=== PATIENT | female | born 1975 | race Asian ===

== ENCOUNTER 2024-03-04 07:18 | Day surgery (SDC) | payer OTHER, SELFPAY ==
[2024-02-28 09:23] VITALS: BMI 26.2
[2024-03-04] VITALS (10 sets, daily range): BP systolic 104–121; BP diastolic 62–74; PULSE 76–90; RESP 12–18; TEMP 36.2–36.8; O2SAT 97–100; BMI 26.5
--- NOTE | 2024-03-04 | PATH_ITS ---
[facility] Accession Number: [id number] No. of containers..01 Tissue . 01 Material submitted: . uterus - UTERUS . 01 Diagnosis: UTERUS, SUPRACERVICAL HYSTERECTOMY, BILATERAL SALPINGECTOMY, AND RIGHT OOPHORECTOMY (WEIGHT 141 GRAMS): Secretory endometrium; negative for endometrioid intraepithelial neoplasia or malignancy. Myometrium involved by adenomyosis and with a leiomyoma (32 mm in greatest dimension). Uterine serosa with no significant histomorphologic abnormality. Longer fallopian tube, complete cross sections, with scattered benign paratubal cysts (up to 9 mm in greatest dimension). Crandall fallopian tube, complete cross sections, with benign paratubal cysts (up to 9 mm in greatest dimension). Right ovary with a benign hemorrhagic corpus luteum cyst and with scattered benign cortical cystic follicles. MRV 03/08/2024 1109 Local . 01 Electronically signed: . Svetlana Weiner MD, Pathologist NPI- [id number] . 01 Gross description: . Received in formalin with two patient identifiers and uterus, bilateral fallopian tube, and right ovary, is a fragmented uterus (141 grams, 13.1 x 11.9 x 4.5 cm in aggregate), two attached, unoriented fimbriated fallopian tubes (5.9 x 0.9 cm and 4.6 x 0.7 cm), and a single presumed right ovary (6 grams, 3.7 x 2.5 x 2.0 cm), with no cervix or additional adnexa identified. The serosa is gutierrez and smooth with no hemorrhage or adhesion identified. The presumed endometrium is brown and velvety and averages 0.3 cm thick. The myometrium is gutierrez and moderately trabecular with fragments of well-circumscribed white whorled nodules measuring up to 3.2 cm in greatest dimension with no hemorrhage or necrosis identified. Both tubes have violaceous, wrinkled serosa with cysts up to 0.9 cm in greatest dimension filled with clear serous fluid. The lumen of the longer tube is partially dilated and filled with mucoid material. The remaining lumina are stellate and unremarkable. . The ovary is gutierrez to violaceous and cerebriform with a defect (2.0 cm in length). The cut surface is gutierrez to hemorrhagic with multiple thin, smooth-walled cysts up to 1.0 cm in greatest dimension filled with gutierrez serous fluid. . Human Resources Benefits Administrator sections are submitted as follows: A1: Endometrium. A2: Human Resources Benefits Administrator nodules. A3: Longer fallopian tube to include one-half of bisected fimbriae and cross sections. A4: Crandall fallopian tube to include one-half of bisected fimbriae and cross sections. A5: Ovary with cysts. ([id number]) /MRV 03/06/2024 1708 Local . 01 Pathologist provided ICD-10: N93.9 . 01 CPT . 134850 Specimen Comment: A courtesy copy of this report has been sent to [facility] Performed at: [address] [address], [place], [place] [id number] MD Yash Bird MD Phone: [phone]
[2024-03-04] MEDS: SCOPOLAMINE 1 PATCH TOP (07:51)
[2024-03-04] MEDS: LACTATED RINGERS 1,000 ML 42 ML IV (07:51)
[2024-03-04] MEDS: ACETAMINOPHEN IV 1,000 MG/100 ML VIAL 400 MG IV (07:51)
--- NOTE | 2024-03-04 08:17 | PM.GYNHP.1 ---
History of Present Illness History of Present Illness Reason for admission: other (scheduled procedure ) Narrative: Erika Longoria is a 48 year old female with h/o progressive AUB in setting of perimenopause presents for scheduled indicated hysterectomy with bilateral salpingectomy, possible bilateral vs unilateral oophorectomy pending intraoperative findings. Patient had telehealth encounter 03/01/24 to review plan of care, had requested consideration of full BSO at time of procedure. This AM reviewed with patient that given her young age and absence of significant family history I would recommend that she retain her R ovary (L has historically had symptomatic cysts) unless intraoperative abnormality identified for purposes of bone density protection. Patient in agreement with this plan. Reviewed that attempt at supracervical approach will be made with low threshold to proceed to TLH/LAVH if anatomy is not conducive to this approach or if there is concern for any anterior/posterior laxity that would increase risk of future vaginal prolapse. Patient verbalized understanding and affirms desire to proceed with procedure as scheduled today [facility] Medical History (Updated 10/27/23 @ 16:09 by Hailee Chao MD) Fibroids, subserous Abnormal uterine bleeding (AUB) Social History household members: spouse Smoking Status: Never smoker Meds Home Medications and Allergies Home Medications Medication Instructions Recorded Confirmed Type fluoxetine 20 mg capsule 20 mg PO DAILY 10/27/23 03/04/24 History Allergies Allergy/AdvReac Type Severity Reaction Status Date / Time No Known Drug Allergies Allergy Unverified 03/04/24 07:39 Review of Systems Review of Systems ROS: Yes All systems reviewed with the patient and are negative except as otherwise documented Exam Vital Signs (past 8 hours): - 03/04/24 07:55 Temperature 97.1 F L Pulse Rate 81 Respiratory Rate 16 Blood Pressure 121/74 Pulse Oximetry 99 Oxygen Delivery Method Room Air Oxygen Delivery Method Room Air Const General: cooperative, healthy appearing, comfortable and well developed Resp Effort & Inspection: normal respiratory effort and able to speak in complete sentences Cardio Pulses: normal peripheral pulses GI Palpation: soft Other: deferred Skin General: no rashes or lesions noted Neuro General: patient alert, patient awake and patient oriented x3 Extrem General: normal to inspection Psych Mental Status: mental status grossly normal Judgment: judgment good Assessment & Plan Assessment and plan (1) Fibroids, subserous: Status: Acute (2) Abnormal uterine bleeding (AUB): Status: Acute Plan 48yo perimenopausal female with h/o AUB presents for definitive surgical management via hysterectomy with bilateral salpingectomy, uni-vs bilateral oophorectomy pending intraoperative findings, final approach (LAVH vs supracervical) pending intraoperative findings Plan of care reviewed with patient and spouse Patient affirms desire to proceed with procedure as scheduled Time-Based Coding :: [TOTAL MINUTES] spent with patient and on the chart (including review of chart, obtaining history, exam, reviewing outside data, placing orders, documenting exam and treatment plan, and counseling patient) on [DATE].
--- NOTE | 2024-03-04 08:24 | PM.PREOP ---
Pre-operative Note Interval Note History & Physical reviewed/Exam performed by Physician: Yes Changes to H&P: No H&P completed within 30 days and has changed as indicated here:: 03/04/24 ASA Class (for procedural sedation): II
[2024-03-04] MEDS: CEFAZOLIN 2 GM/100 ML PREMIX 100 ML IV (08:50)
--- NOTE | 2024-03-04 08:59 | SUR.OPER ---
Lithotomy on padded OR bed. [place] Pad Positioner under torso. Head on pillow, arms padded and tucked at sides. Legs secured in padded yellow fins stirrups.
[2024-03-04] MEDS: BUPIVACAINE 0.5% W/ EPI (PF) 30 ML VIAL INJ (09:07)
[2024-03-04] MEDS: ROPIVACAINE 0.5% PF 5 MG/ML 20ML VIAL 10 ML INJ (10:18)
--- NOTE | 2024-03-04 11:06 | PM.OP.1 ---
Operative Date/Time/Diagnoses Date of procedure: 03/04/24 Time of procedure: 11:07 Pre-op diagnosis: AUB Post-op diagnosis: same Procedure & Clinicians Procedure: supracervical hysterectomy with bilateral salpingectomy, R oophorectomy, lysis of adhesions Same procedure as scheduled: Yes Indications: AUB refractory to medical management, patient desired definitive surgical management Surgeon: Hailee Chao Lens Engraver: Vivienne Collins Click Yes if Unassisted: No Anesthesia Type: General Operative Notes Findings: normal external female genitalia, urethra, parous cervix adhesion of bowel to L uterosacral ligament uterus grossly enlarged secondary to fibroid, appearance consistent with adenomyosis L ovary visualized and grossly wnl R ovary visualized and multi-cystic in appearance including areas consistent prior hemorrhagic cyst bilateral fallopian tubes grossly wnl Closure Type: primary Specimen(s): other (uterus, bilateral fallopian tubes, R ovary) Estimated Blood Loss (mL): 50 Procedure in detail: The patient was taken to the operating room, placed on the operating table in the supine position and intubated with ETT.? The patient was then placed in the lithotomy position with her legs in Edu stirrups.? The patient was then examined under anesthesia with the above findings, then prepped and draped in a sterile fashion.? A salgado catheter was placed.? Time out was performed. To determine surgical approach first a sterile sponge was placed in the vagina for atraumatic uterine manipulation. Gloves were changed and attention was then turned to the abdomen. A 5mm incision was made infraumbilically and abdominal entry was achieved under direct visualization using the 5mm VisaPort trocar.? Abdomen was insufflated to 15mmHg.? Two lateral 5-mm ports were placed in a similar manner under direct visualization.? The uterus was anteverted and abdominal survey was noted with findings as noted above. With confidence that anatomy allowed case to proceed via supracervical hysterectomy laparoscopy was paused for placement of uterine manipulator. A sterile speculum was inserted into the vagina.? The anterior cervix was grasped with single tooth tenaculum and under gentle uterus sounded to 10cm.? The zumi manipulator was placed in the standard fashion and the balloon was inflated.? Gloves were changed once more and attention was then returned once more to the abdominal portion of the case. The Powerseal was used to perform adhesiolysis of the noted bowel adhesion as above. This was done with very judicious cautery taking great care to keep all thermal energy away from the bowel. With pentecostal of normal anatomy attention was turned first to the R adnexae. The distal tube was grasped and elevated and the infundibulopelvic ligament was ligated and transected using the PowerSeal device. The dissection was then continued to the level of the cornua afollowed by serial ligation and dissection of the broad ligament down to the level of the uterine artery. A bladder flap was developed sharply and the uterine artery was further skeletonized followed by ligation and transection. The same procedure was then performed on the L with the exclusion of the oophorectomy leaving the L ovary in situ. With ligation and transection of both uterine arteries the uterus was seen to sussy significantly. The Nereyda Loop was placed via the L lateral side port and following close visual inspection to ensure appropriate placement the zummi manipulator was removed via the vagina by surgical assisstant and replaced with sterile sponge stick. The Nereyda Loop was then used to amputate the uterus from the cervix. Wound bed inspected and noted persistent bleeding at R aspect was noted and coagulated without recurrence. The area of planned suprapubic incision was infiltrated with 1% lidocaine for local analgesia. A 4cm linear incision approximately 2 fingerbreadths above the level of the pubic symphysis was made and the 12mm trocar was introduced. Under direct visualization the amputated surgical specimen was placed into the large endocatch bag and brought to the level of the incision; insufflation released. The Vazquez retractor was placed via the suprapubic incision into the endocatch bag around the specimen. The specimen was grasped using yadira clamps and C-incision extracoporeal morcellation was performed with removal of the specimen. The endocatch bag was removed. The fascia of the incision was closed using 0-vicryl on a UR6 needle in running fashion. The abdomen was then re-insufflated and the wound bed was again inspected and noted to be hemostatic. The endocervical canal was burned and coagulated using the monopolar spatula. Bupivicaine was placed along the pelvic floor using the laparoscopic introducer. The pneumoperitoneum was vented and trocars were removed under direct visualization. The subcutaneous space of the suprapubic incision was reapproximated using 3-0 vicryl in a running fashion. Skin of all incisions was closed with 4-0 monocryl in a subcuticular fashion followed by application of dermabond. All instruments were removed from the vagina and salgado catheter was discontinued. All counts correct x2. The patient was extubated and taken to the PACU in stable condition. Complications: none Post-operative Condition: stable Disposition: PACU Plan for aftercare: pending clinical course, anticipate dc to home later vs POD1 pending postoperative analgesia needs
[2024-03-04] MEDS: BENZOCAINE/MENTHOL 1 LOZ PKT 1 EACH PO (11:07)
[2024-03-04] MEDS: OXYCODONE IR 5 MG TABLET PO ×2 (11:23→12:11)
[2024-03-04] MEDS: ONDANSETRON 4 MG/2 ML INJ IV (11:39)
[2024-03-04] MEDS: hydrOXYzine 50 MG/ML INJ 25 MG IM (12:15)
== END 2024-03-04 13:30 | disposition home or self-care (01) ==
LOC: OR 07:19 → AC 07:19
PROVIDERS: PCP Family Medicine; Referring Provider Obstetrics & Gynecology; Visit Provider Obstetrics & Gynecology
PROC: 0UT94ZZ Resection of Uterus, Percutaneous Endoscopic Approach (ICD-10-PCS; CPT 58542; principal; 2024-03-04 09:00)
DX: N93.9 Abnormal uterine and vaginal bleeding, unspecified (principal); D25.2 Subserosal leiomyoma of uterus; N73.6 Female pelvic peritoneal adhesions (postinfective); N80.03 Adenomyosis of the uterus; N83.8 Other noninflammatory disorders of ovary, fallopian tube and broad ligament; N83.11 Corpus luteum cyst of right ovary
CPT/HCPCS: 58542; 81025; J0134; J0690; J1100; J1885; J2250; J2405; J3010; J3410

== ENCOUNTER → 2024-09-25 07:04 | Outpatient (CLI) | payer OTHER, SELFPAY ==
--- NOTE | 2024-09-25 07:06 | DI.US.S_ITS ---
PROCEDURE: US PELVIC COMPLETE INDICATIONS: PMB TECHNIQUE: Real-time scanning was performed of the pelvic organs, with image documentation. Additional endovaginal scanning was necessary due to incomplete visualization of the adnexal and endometrial structures by transabdominal scanning. COMPARISON: None. FINDINGS: Uterus: Surgically absent. Cervix is present with nabothian cysts. Ovaries: The right ovary is surgically absent. The left ovary is not well seen. Other: No pathologic free abdominal or pelvic fluid. IMPRESSION: Status post hysterectomy and right oophorectomy. The left ovary is not well seen. We strive to produce accurate, complete, and clear reports of imaging services. To assist us in improving patient care, this report was composed using standard report templates and voice recognition software. Therefore, it may contain abnormal punctuation, insertions and/or omissions. Occasional wrong-word or sound-alike substitutions may occur. Though we review the report and make efforts to correct it, we do recommend that the report be read carefully in proper context to recognize any text inaccuracies. Dictated by: Low Barfield M.D. on 09/26/2024 at 8:40 Approved by: Low Barfield M.D. on 09/26/2024 at 8:41
== END ==
PROVIDERS: PCP Family Medicine; Referring Provider Obstetrics & Gynecology; Visit Provider Obstetrics & Gynecology
DX: N95.0 Postmenopausal bleeding (principal); N88.8 Other specified noninflammatory disorders of cervix uteri; Z90.711 Acquired absence of uterus with remaining cervical stump; Z90.721 Acquired absence of ovaries, unilateral
CPT/HCPCS: 76830; 76856

== ENCOUNTER 2024-12-23 06:02 | Day surgery (SDC) | payer OTHER, SELFPAY ==
[2024-12-17 13:41] VITALS: BMI 25.7
[2024-12-23] VITALS (7 sets, daily range): BP systolic 111–128; BP diastolic 55–84; PULSE 80–105; RESP 15–25; TEMP 36.2–36.8; O2SAT 98–100; BMI 25.7
--- NOTE | 2024-12-23 | PATH_ITS ---
[facility] Accession Number: [id number] No. of containers..03 Tissue . 01 Material submitted: . PART A: ovary - LEFT OVARY PART B: vagina - VAGINAL CUFF PART C: cervix - UTERINE CERVIX . 01 Diagnosis: A. LEFT OVARY, LEFT OOPHORECTOMY: Benign ovary with hemorrhagic corpus luteal cyst and follicular cyst. Negative for atypia or malignancy. . B. VAGINAL CUFF, BIOPSY: Fibrous tissue with mild chronic inflammation, focal organizing hemorrhage, and focal multinucleated/giant cell foreign body reaction, please see microscopic description. Negative for endometriosis or malignancy. . C. UTERINE CERVIX, TRACHELECTOMY: Cervical mucosa and stroma without significant pathologic abnormalities. Negative for endometriosis, please see microscopic description. Negative for dysplasia or malignancy. [facility] 12/27/2024 1757 Local . 01 Electronically signed: . Radha Bobby MD, Pathologist NPI- [id number] . 01 Gross description: . A. Received in formalin with two patient identifiers and L. ovary, is a 7 gram, 2.8 x 2.5 x 1.3 cm ovary with attached soft tissue. Sectioning reveals a 2.0 x 1.3 x 0.8 cm smooth-walled cortical cyst containing clear serous fluid. Curriculum And Instruction Director sections are submitted in cassettes A1-A2. B. Received in formalin with two patient identifiers and biopsy of the vaginal cuff, is a 0.7 x 0.6 x 0.5 cm gutierrez, cauterized tissue fragment. Entirely submitted in cassette B1. C. Received in formalin with two patient identifiers and uterine cervix, is a 28 gram, 3 cm in length by 4 cm in diameter cervix resection. The paracervical margin is inked blue. The ectocervical mucosa is gutierrez-brown, ragged, disrupted, and focally hemorrhagic. The endocervical canal is gutierrez-brown, and focally hemorrhagic. A discrete mass or lesion is not grossly identified. Curriculum And Instruction Director sections are submitted in cassettes C1-C2. ([id number]) /[facility] 12/24/2024 [facility]5 Local . 01 Microscopic: . B. Microscopic examination of the vaginal cuff reveals fibrous tissue with mild chronic inflammation and focal foreign body/multinucleated giant cell reaction. . There is focal evidence of old organizing hemorrhage with collections of hemosiderin-laden macrophages. . No endometrial-type glands and no endometrial-type stroma appreciated by CD10 immunostain. Deeper levels examined. These findings argue against endometriosis. . There is no evidence of atypia or malignancy. . C. Examiniation of the uterine cervix reveals no significant diagnostic abnormalities. There is no evidence of dysplasia or malignancy. . No evidence of endometriosis as no endometrial-type glands or stroma present on the sections examined. . Multiple deeper levels have been examined. . * This test was developed and the performance characteristics were validated by [employer]. It has not been cleared or approved by the U.S. Food and Drug Administration. . 01 Pathologist provided ICD-10: R10.2, N88.8 . 01 CPT . 811948, 176303, 092562, [id number] Specimen Comment: A courtesy copy of this report has been sent to [phone] Performed at: [address] [address], [place], [place] [id number] MD Yash Bird MD Phone: [phone]
[2024-12-23] MEDS: LACTATED RINGERS 1,000 ML 42 ML IV ×2 (07:11→09:44)
--- NOTE | 2024-12-23 07:41 | PM.PREOP ---
Pre-operative Note COVID-19 COVID-19 status: Not tested Interval Note History & Physical reviewed/Exam performed by Physician: Yes Changes to H&P: No
--- NOTE | 2024-12-23 08:33 | SUR.OPER ---
Lithotomy on padded OR bed. [place] Pad Positioner under torso. Head on pillow, left arm padded and tucked at side, right arm secured on padded arm board. Legs secured in padded yellow fins stirrups.
--- NOTE | 2024-12-23 10:53 | P.OP_ITS ---
Operative Date/Time/Diagnoses Date of procedure: 12/23/24 Time of procedure: 08:30 Pre-op diagnosis: Right lower quadrant pain Persistent vaginal bleeding status post laparoscopic supracervical hysterectomy Post-op diagnosis: other (Same as above, abdominal wall adhesion, cuff endometriosis) Procedure & Clinicians Procedure: Procedures Operation Date: 12/23/24 07:45 Actual Procedure Side Surgeon p Trachelectomy s Diagnostic Laparoscopy w/ Left Oophorectomy s Lysis of Adhesions MD Miguel Perez MD Joseph E Wilson, MD Indications: Erika is a 49-year-old perimenopausal who underwent laparoscopic supracervical hysterectomy in February 2024 and since that time has had persistent episodic spotting/bleeding as well as right lower quadrant pain which began immediately after the surgery. The pain is constant with a pressure component and intermittent sharp pains which can radiate to the umbilicus. These episodes can last couple of hours or linger for as long as a couple of days. Pain is sometimes extremely bad in the right lower quadrant which prohibits her from doing normal daily activities. In review of the operative note it appears there were adhesions in the area of the right adnexa which necessitated removal of the right tube and ovary. This pain is sometimes associ ated with nausea if the pain is extremely bad but otherwise is not typically associated with nausea or any other GI/ symptoms. After discussions regarding options for further evaluation/treatment, patient wishes to proceed with robotic assisted diagnostic laparoscopy in conjunction with possible left oophorectomy, possible appendectomy, and plans for trachelectomy. She presents today for her preop evaluation, counseling, and consent. Surgeon: Miguel Sage Anesthesia Type: General Operative Notes Findings: At the site of the patient's right lower quadrant pain was an abdominal adhesion involving the omentum to the site of previous laparoscopic port incision. The upper abdomen and appendix were normal. There were no other adhesions involving the right pelvic sidewall or anterior abdominal wall. Overlying the cervix, was a small area highly suggestive of endometriosis to the right side of the cuff itself. This was excised and submitted as a separate pathologic specimen. The left ovary was normal but was removed per the patient request. The cervix was u nremarkable and there was good support of the vaginal apex. No other abnormalities in the pelvis or abdomen were noted. Closure Type: primary Specimen(s): other (Vaginal cuff biopsy, cervix, left ovary) Applied: none Estimated blood loss (mL): 75 Blood products transfused: none Procedure in detail: With the patient under satisfactory general anesthesia in the modified dorsal lithotomy position, the abdomen, vagina, and perineum were prepped and draped in the usual manner for laparoscopy and trachelectomy. A pre-surgical safety time- out was then taken in accordance with [facility] protocols. The bladder was emptied with a San catheter and a sponge stick was placed in the vagina. The umbilicus was infiltrated with 0.5% Marcaine with epinephrine and the old transverse infraumbilical scar was excised. The dissection was carried down to the fascia which was grasped with 2 Marcel clamps and incised transversely. Stay sutures of 0 Vicryl were placed at each end of the incision. The peritoneum was then entered with Metzenbaum scissors and a Cardona cannula was placed through the incision into the peritoneal cavity and secured in place with the 0 Vicryl sutures. Correct placement of the Cardona cannula was confirmed and insufflation of the abdomen with carbon dioxide was accomplished without difficulty. A 2nd and 3rd port using 5 mm trocar and sleeves were placed in the left and right mid quadrant after infiltration of the skin subcutaneous tissues with 0.5% Marcaine with epinephrine. Using a 3 port technique, the anterior abdominal wall was carefully inspected and the isolated adhesion involving the omentum to the anterior abdominal wall at the site of the patient's pain was coagulated and divided with a PowerSeal device. The remainder of the pelvis and abdomen were thoroughly inspected and there was no other potential source of pain identifiable. Inspection of the pelvis showed what appeared to be a small focus of endometriosis to the right side of the cervix involving the peritoneum and the superficial stroma of the cervix. This was excised and submitted as a separate pathologic specimen. The left ovary was then identified and elevated with an atraumatic grasper. The infundibulopelvic ligament was then coagulated and divided with the PowerSeal device and the ovary was retrieved through the umbilical port with an Endo-Catch bag. It too was submitted as a separate pathologic specimen. Attention was then turned to performance of the trachelectomy vaginally. A weighted speculum was placed in the vagina and the cervix was grasped with 2 single-tooth tenaculum. The portio of the cervix was then infiltrated with 0.5% Marcaine with epinephrine and incised circumferentially with monopolar cutting current. The bladder was advanced with a Ray-Isaias and the anterior cul-de-sac was easily entered. A Ye retractor was placed and attention was then turned to the posterior cul-de-sac. The posterior cul-de-sac was also entered easily and the peritoneum tagged to the posterior vaginal mucosa. The uterosacral ligaments were then taken on both sides with Parish Catarina clamps and transfixed with 0 Vicryl and a transfixing suture. A LigaSure device was then used to coagulate and divide the remaining cervical pedicles on both sides and the cervix was removed without difficulty. It too was submitted as a separate pathologic specimen. The vaginal cuff was then closed with a series of 0 Vicryl the urinate stitches and hemostasis was excellent. The abdomen was then reinsufflated and hemostasis confirmed by inspection of the vaginal cuff from above. The pelvis was irrigated thoroughly and with no other abnormalities noted, the pneumoperitoneum was vented and the laparoscopic trocars removed. The umbilical incision was then closed 1st with 0 Vicryl interrupted on the fascia and 4-0 Vicryl inverted interrupted were used to close the remaining port incisions. Appropriate dressings were applied and the patient was awakened from anesthesia. She was then transferred to the PACU for a period of observation and recovery after having tolerated the procedure well. Complications: none Post-operative Condition: stable Disposition: PACU Plan for aftercare: Routine postoperative care with discharge later today.
[2024-12-23] MEDS: KETOROLAC 30 MG/ML VIAL IV (11:01)
== END 2024-12-23 11:47 | disposition home or self-care (01) ==
PROVIDERS: Obstetrics & Gynecology; PCP Family Medicine; Referring Provider Obstetrics & Gynecology; Visit Provider Obstetrics & Gynecology
PROC: (CPT 58662; principal; 2024-12-23 07:45)
DX: R10.2 Pelvic and perineal pain (principal); N88.8 Other specified noninflammatory disorders of cervix uteri; N93.9 Abnormal uterine and vaginal bleeding, unspecified; Z40.8 Encounter for other prophylactic surgery; K66.0 Peritoneal adhesions (postprocedural) (postinfection); N80.8 Other endometriosis; N83.12 Corpus luteum cyst of left ovary; N83.02 Follicular cyst of left ovary
CPT/HCPCS: 58662; 57530; 58661; J0330; J0690; J1100; J1171; J1885; J2250; J2405; J2704; J3010; J3490

== ENCOUNTER → 2025-03-25 14:23 | Outpatient (CLI) | payer OTHER, SELFPAY ==
[2025-03-25 15:14] LABS: Follicle Stimulating Hormone 56.6 mIU/mL
[2025-03-25 15:30] LABS: Estradiol, Total 50.9 pg/mL
== END ==
PROVIDERS: PCP Family Medicine; Referring Provider Obstetrics & Gynecology; Visit Provider Obstetrics & Gynecology
DX: N95.1 Menopausal and female climacteric states (principal)
CPT/HCPCS: 36415; 82627; 82670; 83001; 84402; 84403